=== PATIENT | female | born 1950 | race Caucasian/White ===

== ENCOUNTER 2023-12-14 20:41 | Inpatient (IN) | payer OTHER, SELFPAY ==
[2023-12-14 18:16] VITALS: BP 166/104
[2023-12-14 18:39] VITALS: BMI 36.4
[2023-12-14 18:43] VITALS: BP 153/108
--- NOTE | 2023-12-14 18:51 | ED.GENMED ---
History of Present Illness
General
Chief Complaint: Heart Rate Problem
Source: patient
Exam Limitations: none
Time Seen by Provider: 12/14/23 18:24
Travel History
Have you had any contact with someone who has COVID-19?: No
Do you have any symptoms of coronavirus? Fever > 100 degrees, chills, cough, shortness of breath, sore throat, loss of taste or smell, muscle aches, or headache?: No
History of Present Illness
History of Present Illness:
This is a 73 year old female that comes in with c/o SOB. States that she went to [facility] on Wednesday and she was told that she had Pneumonia. Patient was given Prednisone, Doxycycline, Tessalon pearls and albuterol inhaler. States that she went
to the PCP today and her Pulse ox at home was only 94% and it went down to 93% in the PCP office. States that they gave her a neb treatment and told her to come to the ER. States that she is SOB with walking and her chest is sore due to the
coughing. States that she had diarrhea 2 days ago and has a headache. Denies any fever, chills, abd pain, nausea, vomiting, diarrhea, dizziness, urinary burning.
Past History
Past History
ED Past Medical History: Arrthythmia (afib on Xarelto), Hypercholesterolemia and Other (Sleep apnea, )
ED Past Surgical History: None
Social History
Tobacco: Former smoker
Alcohol: Occasional
Drug: None
Personal:
Living: alone
Review of Systems
Review of Systems
All Other Systems: ROS reviewed and negative except as documented in HPI and ROS
Constitutional: Reports no symptoms; Denies fever or chills
EENT: Reports no symptoms
Respiratory: Reports cough and trouble breathing
Cardiac: Reports no symptoms; Denies chest pain
ABD/GI: Reports no symptoms; Denies abdominal pain, nausea, vomiting or diarrhea
: Reports no symptoms; Denies dysuria, frequency or urgency
Musculoskeletal: Reports no symptoms
Skin: Reports no symptoms
Neurological: Reports headache; Denies dizzy
Psychiatric: Reports no symptoms
Phy Exam
General Physical Exam
General Presentation: mild distress
General age: appears stated age
General Skin: warm and dry
General Habitus: elderly
General Mental: alert
General Hydration: dry mucous membranes
ENT Exam
ENT Exam: TM's normal, pharynx normal and neck supple
Eye Exam
Eye Exam: EOMI
Cardiovascular Exam
Cardiovascular Exam: no edema, no murmur, normal peripheral pulses and irregularly irregular
Pulmonary Exam
Pulmonary Exam: no rales, chest non tender, no crackles, no rhonchi, decreased breath sounds and other (Anterior exp wheezing noted, Dry cough, SOB with ambulation)
Gastrointestinal Exam
Gastrointestinal Exam: normal bowel sounds, non tender, soft, no organomegaly, no pulsatile mass and non distended
Musculoskeletal Exam
Musculoskeletal Exam: full ROM and no edema
Skin Exam
Skin Exam: normal color, warm/dry, no rash and no petechia
Psychiatric Exam
Psychiatric Exam: normal mood/affect
Course
Orders/Labs/Results
Orders:
Orders
12/14/23 18:21
Electrocardiogram (*1) Urgent
Reason for Study: Chest Pain
EKG- Treatment ONCE
12/14/23 18:43
CR Chest - 2 Views Urgent
Comment:
Reason For Exam: sob, WHEEZING
12/14/23 18:46
Complete Blood Count/With Diff Urgent
Comprehensive Metabolic Panel Urgent
Lactic Acid Urgent
Blood Culture Q30M
TIN Source: Blood/Venous
Specimen Description:
Blood Culture Q30M
TIN Source: Blood/Venous
Specimen Description:
12/14/23 19:13
Diltiazem HCl [Cardizem] 10 mg IV NOW STA
Ipratropium/Albuterol Sulfate [Duoneb] 3 ml INH R NOW ONE
Abnormal Lab Results
12/14/23
18:46
Absolute Neuts (auto) 8.1 H 10^3/uL
(1.4-6.5)
Absolute Monos (auto) 0.9 H 10^3/uL
(0.1-0.6)
Neutrophils % 76.5 H %
(42.2-75.2)
Lymphocytes % 14.0 L %
(20.5-51.1)
BUN 30 H mg/dl
(7-17)
Glucose 115 H mg/dl
(70-99)
12/14/23 18:46
12/14/23 18:46
Dehydration. glucose nonfasting. Lactic acid normal at 1.5
Vital Signs
Initial and Last Documented VS:
Initial Vital Signs
Temp Pulse Resp BP Pulse Ox
98.3 F 114 22 166/104 94
12/14/23 18:16 12/14/23 18:16 12/14/23 18:16 12/14/23 18:16 12/14/23 18:16
Last Documented Vital Signs
Temp Pulse Resp BP Pulse Ox
98.3 F 121 24 123/72 93
12/14/23 18:16 12/14/23 19:15 12/14/23 19:15 12/14/23 19:13 12/14/23 19:15
MDM/Problems Addressed
Differential Diagnosis Includes:
Pneumonia, Wheezing
MDM/Problems Addressed:
This is a 73 year old female that comes in with c/o SOB and low oxygen level. Patient was seen on Wednesday at [facility] and was diagnosed with Pneumonia. Patient was given Doxycycline, Albuterol, Prednisone and Tessalon pearls. States that she is
not getting any better.
Will get labs, Chest x-ray
Back into see patient. Explained that her Chest x-ray was negative for Pneumonia. Patient blood work shows Dehydration. However, patient remains in uncontrolled atrial fib with her rate between 120-131. Will give IV cardizem and place on a Cardizem
drip and admit. Hospitalist notified.
Chronic conditions affecting care:
NA
Acute Exacerbation and/or Progression of Chronic Illness:
Chronic bronchitis,
*Radiology
Radiology exam reviewed: radiology read reviewed (Chest-NO acute cardiopulmonary process)
*Pulse Oximetry
Patient hypoxic: no
*EKG
Interpreted by ED Provider?: Yes
Heart Rate: 115
Rate: tachycardiac
Rhythm: a-fib
[place]: normal axis
QRS Pattern: normal QRS
Ischemia: no ischemia
*[place] Interpretation
Rate: tachycardiac
Interpretation: abnormal
Heart Rate: 122
Rhythm: a-fib
*Critical Care Note
Total Time (30-74mins, 75-104mins- exclusive of procedures): Not Applicable
ED Attending Note
-
Portions of this chart may have been created with voice recognition software.� Occasional wrong word or��sound alike� substitutions may have occurred due to the inherent limitations of voice recognition software.
Discharge Plan
Departure
Patient Disposition: Admit
Date of Disposition: 12/14/23
Time of Disposition: 19:52
Admit to: Telemetry
Presentation/result/management discussed w/ accepting MD/DO: Hospitalist
Patient with high blood pressure during this ER visit?: Yes
Condition: Good
Covid-19: Not Applicable
Discharge Problem:
Bilateral wheezing, SOB (shortness of breath), Atrial fibrillation
Prescriptions:
No Action
atorvastatin 40 mg Tablet
40 mg PO HS
doxycycline hyclate 100 mg capsule
100 mg PO BID
Patient Comments:
12/14/2023, filled on 12/12/2023 and instructed to take one capsule BID for 10 days.
albuterol sulfate 2.5 mg /3 mL (0.083 %) Solution For Nebulization
2.5 mg INHALATION R Q6HPRN PRN (Reason: sob)
Theragen Tablet
1 tab PO DAILY
sotalol 120 mg Tablet
120 mg PO BID
prednisone 10 mg Tablets,Dose Pack
10 mg PO DIRECTED
Rx Instructions:
12/14/2023, 60 mg x 4 days; 40 mg x 4 days; 20 mg x 4 days.
nadolol 20 mg Tablet
20 mg PO DAILY
albuterol sulfate 90 mcg/actuation Hfa Aerosol Inhaler
2 puff INHALATION R Q4HPRN PRN (Reason: sob)
acetaminophen [Tylenol Extra Strength] 500 mg Capsule
1,000 mg PO DAILYPRN PRN (Reason: mild pain)
cholecalciferol (vitamin D3) 125 mcg (5,000 unit) Tablet
125 mcg PO DAILY
Xarelto 20 mg Tablet
20 mg PO QPM
benzonatate [Tessalon Perles] 100 mg Capsule
100 mg PO TID PRN (Reason: cough)
Referrals:
Zita Petersen MD [Family Provider] -
Interventions
Interventions:
*Risk Screen - Suicide Last Done: 12/14/23 18:16
*General Assessment Last Done: 12/14/23 18:16
*Neglect/Abuse Screening Last Done: 12/14/23 18:16
ED- Fall Risk Assessment Last Done: 12/14/23 18:39
*ED COVID-19 Vaccine History Last Done: 12/14/23 18:34
ED- Cardiac Assessment Last Done: 12/14/23 18:39
ED- Pulmonary Assessment Last Done: 12/14/23 18:39
Discharge Date and Time
Print Language: LITHUANIAN
[2023-12-14 19:04] LABS: % Basophils 0.3 % (0-2); % Immature Granulocytes 0.4 % (0-0.5); % Monocytes 8.8 % (1.7-9.3); % Neutrophils 76.5 % (42.2-75.2); Absolute Lymphocytes 1.5 10^3/uL (1.2-3.4); Absolute Monocytes 0.9 10^3/uL (0.1-0.6); Absolute Neutrophils 8.1 10^3/uL (1.4-6.5); Hematocrit 42.5 % (37.0-47.0); Hemoglobin 14.9 g/dL (12.0-16.0); Mean Corp Hgb Conc. 35.1 g/dL (33.0-37.0); Mean Corpuscular Hgb 30.4 pg (27.0-31.0); Mean Corpuscular Volume 86.7 fL (81.0-99.0); Mean Platelet Volume 9.7 fL (7.4-10.4); Nucleated Red Blood Cells % 0 %; Platelet Count 261 10^3/uL (130-400); Red Cell Dist. Width 13.2 % (11.5-14.5); White Blood Cell Count 10.6 10^3/uL (4.8-10.8)
[2023-12-14 19:13] VITALS: BP 123/72
[2023-12-14 19:14] LABS: Lactic Acid 1.5 mmol/L (0.7-2.0)
[2023-12-14 19:24] LABS: ALT (SGPT) 30 U/L (0-35); AST (SGOT) 32 U/L (14-36); Albumin 4.5 g/dl (3.5-5.0); Alkaline Phosphatase 84 U/L (38-126); Blood Urea Nitrogen 30 mg/dl (7-17); Calcium 9.9 mg/dl (8.4-10.2); Carbon Dioxide 23 mmol/L (22-30); Chloride 103 mmol/L (98-107); Estimated Creatinine Clearance 82 ml/min; Glucose 115 mg/dl (70-99); Potassium 4.4 mmol/L (3.5-5.1); Sodium 137 mmol/L (135-145); Total Bilirubin 0.6 mg/dl (0.2-1.3); Total Protein 7.5 g/dl (6.3-8.2); eGFR > 60.00
[2023-12-14] MEDS: DUONEB 3 ML INH (19:46)
[2023-12-14] MEDS: CARDIZEM 10 MG IV (19:46)
--- NOTE | 2023-12-14 20:15 | HPS.HSE ---
Addendum entered and electronically signed by Surjit Lezama MD 12/14/23 21:35:
Laboratory Tests
12/14/23
20:12
Zog-F-Vignklmtxha Pept 1200
- await ECHO in AM
Original Note:
Family Physician
-
Family Physician: Zita Petersen
Chief Complaint
-
sent in by PCP for hypoxia
History of Present Illness
73F Former smoker HX chr xarelto for A fib , Class I obesity, JUDY
Sent in by PCP for POx 94% for evaluation:
- Exertional SoB with bothersome cough with light yellow sputum since Wed12/11/23
- NEG Covid at home on Wednesday12/12/23
- eval at [facility] and told she has Bronchitis/ PNA treated with PO Prednisone + PO Doxycycline plus Alb INH.
- f/u at PCP today : noted Pox 93% on RA : Neb Tx and sent to ER
- Denied contact exposure
- No recent travelling
No PNA per CXR upon admission
ROS
Denies any fever, chills, abd pain, nausea, vomiting, diarrhea, dizziness, urinary burning.
Medical History
Past Medical History
Past Medical History: Reports Arrhythmia (A fib on xarelto and Sotalol ), Hypercholesterolemia and Other (Class I Obesity / JUDY )
Past Surgical History: Reports None
Social History
Tobacco: Former Smoker
Alcohol: Occasional
Drug: None
Personal:
Living: Alone
Family History
Family History: Not pertinent
Allergies / Home Medications
Allergies reflects when Allergies were last updated in [facility].
Home Medications with original date entered in [facility]
Allergy/Medication List:
Allergies
Allergy/AdvReac Type Severity Reaction Status Date / Time
No Known Allergies Allergy Verified 12/14/23 18:20
Home Medications
acetaminophen 500 mg capsule 1,000 mg PO DAILYPRN PRN mild pain 12/14/23
albuterol sulfate 2.5 mg/3 mL (0.083 %) solution for nebulization 2.5 mg inhalation R Q6HPRN PRN sob 12/14/23
albuterol sulfate 90 mcg/actuation aerosol inhaler 2 puff inhalation R Q4HPRN PRN sob 12/14/23
atorvastatin 40 mg tablet 40 mg PO HS 12/14/23
benzonatate 100 mg capsule 100 mg PO TID PRN cough 12/14/23
cholecalciferol (vitamin D3) 125 mcg (5,000 unit) tablet 125 mcg PO DAILY 12/14/23
doxycycline hyclate 100 mg capsule 100 mg PO BID 12/14/23
nadolol 20 mg tablet 20 mg PO DAILY 12/14/23
prednisone 10 mg tablets in a dose pack 10 mg PO DIRECTED 12/14/23
rivaroxaban 20 mg tablet (Xarelto) 20 mg PO QPM 12/14/23
sotalol 120 mg tablet 120 mg PO BID 12/14/23
therapeutic multivitamin 1 tab PO DAILY 12/14/23
Review of Systems
-
Constitutional: Reports No Symptoms
EENT: Reports No Symptoms
Respiratory: Reports Cough and Trouble Breathing
Cardiac: Reports No Symptoms
Abdomen/GI: Reports No Symptoms
: Reports No Symptoms
Musculoskeletal: Reports No Symptoms
Skin: Reports No Symptoms
Neurological: Reports No Symptoms
Endocrine: Reports No Symptoms
Hematologic/Lymphatic: Reports No Symptoms
Psych: Reports No Symptoms
Physical Exam
Vital Signs
Vital Signs
Temp Pulse Resp BP Pulse Ox
98.3 F 97 27 123/72 93
12/14/23 18:16 12/14/23 20:00 12/14/23 20:00 12/14/23 19:13 12/14/23 20:00
Physical Exam
General: Respiratory Distress (mild )
HEENT: NormoCephalic, Anicteric, Moist mucous membranes and Atraumatic
Respiratory: Wheezes (exp short squaky wheeze at both chest )
Cardiac: S1/S2, Irregular Rhythm and Tachycardia
Breast: Deferred by me
GI: Soft, Non Tender, Non Distended and Normal Bowel Sounds
Rectal: Deferred by Provider
Genito-urinary: Deferred by me
Musculoskeletal: No Edema
Skin: Warm and Dry
Neuro: AO x 3
Psych: Calm
Laboratory Results
-
12/14/23 18:46
12/14/23 18:46
Laboratory Results
Lactic Acid 1.5 mmol/L (0.7-2.0) 12/14/23 18:46
Total Bilirubin 0.6 mg/dl (0.2-1.3) 12/14/23 18:46
AST 32 U/L (14-36) 12/14/23 18:46
ALT 30 U/L (0-35) 12/14/23 18:46
Alkaline Phosphatase 84 U/L (38-126) 12/14/23 18:46
Data Reviewed
-
Diagnostic Radiology: Report Reviewed by me
Medical Tests (Nuc Med, Echo, EKG etc): Report Reviewed by me
Lab Data: Labs Reviewed by me
Old Records: Reviewed
Impression/Plan
-
Reviewed VS: Afebrile HR: 120s BP 165/105 --> 125/70 RR mid 20s POx low 90s on RA
BMI 34 Class I obesity
Data
Unremarkable CBC
Unremarkable BMP
unremarkable LFts
BG 115
BCx sent
12/03/22 CXR: No acute cardiopulmonary process.
EKG: report
ATRIAL FLUTTER WITH VARIABLE A-V BLOCK
NONSPECIFIC ST AND T WAVE ABNORMALITY
ABNORMAL ECG
WHEN COMPARED WITH ECG OF 10-JUL-2023 09:21,
ATRIAL FLUTTER HAS REPLACED ATRIAL FIBRILLATION
NONSPECIFIC T WAVE ABNORMALITY NOW EVIDENT IN LATERAL LEADS
Last hospitalist admission:
ASSESSMENT & PLAN
Suspect acute asthmatic bronchitis: mild. No evidence of PNA. No feevr and chills
Associated acute hypoxic RI: mild
Bothersome cough with light yellow sputum
Remote HX former smoker for 40 yrs
- IV Decadron 4mg q12h
- Xopenex Nebs qid and PRN
- O2 supplement to keep POx > 93
- No indication for ABx
- Pul consult
Fast AF suspect due to acute asthmatic bronchitis and Albuterol
HX Prx AF on xarelto and sotalol
P card at [place]: Dr Ashley
- cont Diltiazem gtt
- cont. sotalol but held nadolol fo now
- cont. Xarelto
- ECHO in AM ( No prior Echo in [facility])
- CBC card consult
HX JUDY on CPAP HS : reports compliance
BMI 34 Class I obesity
- CPAP HS
DVT Px: xarelto
Code: Ful
IMU
[2023-12-14] MEDS: NSS 1000 IV (20:18)
[2023-12-14] MEDS: CARDIZEM 125 IV (20:18)
[2023-12-14 20:42] LABS: COVID-19 Antigen Negative (Negative)
[2023-12-14 20:50] LABS: NT-proBNP 1200 pg/ml
[2023-12-14 21:13] VITALS: BP 126/83
[2023-12-14 21:17] VITALS: BMI 36.6
[2023-12-14 21:30] VITALS: BMI 36.6
[2023-12-14 22:00] VITALS: BP 115/99
[2023-12-14] MEDS: LIPITOR 40 MG PO (22:40)
[2023-12-14] MEDS: DECADRON 4 MG IV (22:40)
[2023-12-14] MEDS: XARELTO 20 MG PO (22:40)
[2023-12-14 23:53] VITALS: PULSE 103
[2023-12-15] VITALS (11 sets, daily range): BP systolic 112–143; BP diastolic 75–94; PULSE 100; BMI 36.3; BMI 35.8
[2023-12-15] MEDS: XOPENEX 1.25 MG INHALANT SOLUTION INH ×2 (00:06→11:21)
--- NOTE | 2023-12-15 03:26 | PTCARENOTE ---
Rec'd pt from ED RN, AAOx3. Cardizem gtt in place at 5 through L AC IV. VSS, HR 90s. Assessment as documented, harsh occasional non-productive cough. Pt able to ambulate OOBx1 to void. Pt does report some stress incontinence which she wears
disposable underwear for. CPAP HS. Call [facility] within reach.
[2023-12-15 04:48] LABS: Hemoglobin 14.4 g/dL (12.0-16.0); Mean Corp Hgb Conc. 33.5 g/dL (33.0-37.0); Mean Corpuscular Hgb 30.6 pg (27.0-31.0); Mean Corpuscular Volume 91.5 fL (81.0-99.0); Mean Platelet Volume 9.9 fL (7.4-10.4); Platelet Count 217 10^3/uL (130-400); Red Cell Dist. Width 13.2 % (11.5-14.5); White Blood Cell Count 7.7 10^3/uL (4.8-10.8)
[2023-12-15 05:17] LABS: Blood Urea Nitrogen 26 mg/dl (7-17); Calcium 9.1 mg/dl (8.4-10.2); Carbon Dioxide 28 mmol/L (22-30); Chloride 104 mmol/L (98-107); Estimated Creatinine Clearance 79 ml/min; Glucose 123 mg/dl (70-99); Potassium 4.3 mmol/L (3.5-5.1); Sodium 140 mmol/L (135-145); eGFR > 60.00
--- NOTE | 2023-12-15 07:51 | CON.PUL ---
Consultation
Consultation Request
Date/Time Consultation Requested: 12/15/2023-8 AM
Date/Time Consultation Performed: 12/15/2023-8:30 AM
Requesting Provider: Hospitalist
Performing Provider: Dr. Franco
Reason for Consultation: shortness of breath and wheezing
Medical History
-
Chief Complaint: Shortness of breath
History of Present Illness:
73-year-old female with probable underlying asthmatic bronchitis who quit smoking many years ago and has atrial fibrillation, obesity and obstructive sleep apnea presents with increasing shortness of breath, dyspnea exertion, wheezing, nonproductive
cough and pulmonary is consulted for shortness of breath/asthma exacerbation 12/15/2023. She feels improved since she came. She continues to have some wheezing, chest congestion and nonproductive cough. She does not complain of any reflux,
anorexia, leg swelling or weakness. She was recently diagnosed with obstructive sleep apnea and is on CPAP therapy.
Past Medical History
Past Medical History: None (Asthma-moderate persistent suspected. Atrial fibrillation/atrial flutter-chronic anticoagulation. Hyperlipidemia. Obstructive sleep apnea on CPAP. Obesity BMI 34.)
Social History
Tobacco: Former Smoker ([id number] quit 40 years ago)
Alcohol: Occasional
Drug: None
Personal:
Occupational Exposures: No known asbestos exposure
Environmental Exposures: No known tuberculosis exposure
Family History
Family History: Reviewed & Not Pertinent
Allergies / Home Medications
Allergies
Allergy/AdvReac Type Severity Reaction Status Date / Time
No Known Allergies Allergy Verified 12/14/23 18:20
Home Medications
�Medication �Instructions �Recorded �Confirmed �Last Taken �Type
acetaminophen 500 mg capsule 1,000 mg PO DAILYPRN PRN mild pain 12/14/23 12/14/23 2 Days Ago History
~12/12/23
albuterol sulfate 2.5 mg/3 mL 2.5 mg inhalation R Q6HPRN PRN sob 12/14/23 12/14/23 12/14/23 History
(0.083 %) solution for nebulization
albuterol sulfate 90 mcg/actuation 2 puff inhalation R Q4HPRN PRN sob 12/14/23 12/14/23 12/13/23 History
aerosol inhaler
atorvastatin 40 mg tablet 40 mg PO HS 12/14/23 12/14/23 12/13/23 History
benzonatate 100 mg capsule 100 mg PO TID PRN cough 12/14/23 12/14/23 12/14/23 History
cholecalciferol (vitamin D3) 125 125 mcg PO DAILY 12/14/23 12/14/23 12/14/23 History
mcg (5,000 unit) tablet
doxycycline hyclate 100 mg capsule 100 mg PO BID 12/14/23 12/14/23 12/14/23 History
nadolol 20 mg tablet 20 mg PO DAILY 12/14/23 12/14/23 12/14/23 History
prednisone 10 mg tablets in a dose 10 mg PO DIRECTED 12/14/23 12/14/23 12/14/23 History
pack
rivaroxaban 20 mg tablet (Xarelto) 20 mg PO QPM 12/14/23 12/14/23 12/13/23 History
sotalol 120 mg tablet 120 mg PO BID 12/14/23 12/14/23 12/14/23 History
therapeutic multivitamin 1 tab PO DAILY 12/14/23 12/14/23 12/14/23 History
Review of Systems
-
Unable to Obtain full review of systems at this time due to: Other (Per HPI)
Vitals / Labs / Diagnostic Testing
Vital Signs
Temp Pulse Resp BP Pulse Ox
99.1 F 93 18 115/89 91
12/15/23 03:38 12/15/23 04:00 12/15/23 04:00 12/15/23 04:00 12/15/23 04:00
Lab Data
12/15/23 04:40
12/15/23 04:40
Diagnostic Testing:
Physical Exam
-
Exam:
Well-nourished and well-developed in no apparent distress
HEENT-atraumatic, normocephalic, thick neck
Neck-supple, no JVD, no bruit
Heart-regular rate and rhythm-no murmurs, rubs or gallops
Chest with diminished breath sounds, prolonged expiratory time, expiratory wheezes and rhonchi, no crackles
Abdomen-soft, nontender, nondistended, no hepatosplenomegaly
Extremities-no cyanosis, clubbing, trace lower extremity edema
Integument-intact, no rashes, lesions or ecchymosis
Neurology-alert and oriented, nonfocal motor and sensory exam
Assessment
-
73-year-old female with probable underlying asthmatic bronchitis who quit smoking many years ago and has atrial fibrillation, obesity and obstructive sleep apnea presents with increasing shortness of breath, dyspnea exertion, wheezing, nonproductive
cough and pulmonary is consulted for shortness of breath/asthma exacerbation 12/15/2023.
Assessment
Asthma-moderate persistent suspected with acute exacerbation
Atrial fibrillation/atrial flutter on chronic anticoagulation-followed by Dr. Ashley
Mild hyperglycemia
Conditions present prior to admission:
Asthma-moderate persistent suspected.
Former [id number]-year-quit 30 years ago
Atrial fibrillation/atrial flutter-chronic anticoagulation.
Hyperlipidemia.
Obstructive sleep apnea on CPAP-recently diagnosed-followed by Dr. Fransisco Hampton
Obesity BMI 34.
Plan
History is consistent with recurrent asthmatic bronchitis-pathophysiology and inflammatory and reversible airway obstruction pathophysiology was reviewed with patient
Supplemental oxygen as needed
Nebulizers
Steroids-Decadron 4 mg IV every 12 hours initiated
Mucolytic's-on Mucinex 1200 mg twice daily
Aspiration precautions
Consider magnesium if does not improve
Consider heliox if does not improve
CPAP for her obstructive sleep apnea
Monitor for progression of severe exacerbation-
Respiratory rate >30
Tachycardia >120
accessary muscle use
Inability to speak full sentences
Inability be supine
Pulsus paradox, etc.
Monitor PEF if needed
Obtain ABG if necessary to assess for hypercapnia
Check cultures
Doxycycline initiated
Atrial fibrillation/flutter rate controlled
On chronic anticoagulation
Cardiology consultation pending
Eventually obtain allergy testing, IgE level, eosinophils, etc.
Consider Biologics such as Xolair -anti-IgE, Nucala-IL-5 inhibitor, Dbworwn-PP-9 inhibitor, or Dupixent-I L4/13 inhibitor or Tezspire
DVT prophylaxis-on Xarelto
Nutrition
Early mobilization
Follows with Dr. Fransisco Hampton for obstructive sleep apnea
Outpatient pulmonary hyleii-yx-RORx, allergy testing, etc.-we will provide our office information at the time of discharge
Reviewed with nursing
Diagnostic data:
Chest x-ray 07/20/2019-no evidence for pneumonia, 1.9 cm nodular opacification posterior heart and lateral view, CT chest recommended
Chest x-ray 10/02/1932-NAD
Chest x-ray 07/10/2023-NAD
Chest x-ray 12/14/2023-NAD
CT chest 08/19/2019-previously described a possible nodule retrocardiac region lateral view of the chest x-ray is felt to represent overlap of lung markings, no discrete nodules identified, borderline size lymph nodes in the mediastinum and right
hilum consistent with inflammation, scattered bilateral nodular densities are nonspecific
CT sinus 09/24/2009-extensive soft tissue and fluid densities in the paranasal sinuses with multiple air-fluid levels
Data Reviewed
-
EKG: Report reviewed by me
Radiology: Image personally visualized and interpreted and Report reviewed by me
CT Scan: Report reviewed by me
Medical Tests (Nuc Med, Echo etc): Report reviewed by me
Labs: Labs reviewed by me
Old Records: Reviewed
Total Time Spent with Patient (in minutes): 65
--- NOTE | 2023-12-15 08:28 | CON.CAR ---
Addendum entered and electronically signed by Jennifer Goodson MD 12/15/23 11:21:
I saw and examined the patient.
The FINANCIAL SERVICE REP's note was reviewed and I agree with the note.
Comment: She is feeling much better. She has a known h/o PAF, may be developing into a more persistent pattern. She is followed at [place] on sotalol and Xarelto. She is being treated acute asthma exacerbation. Her rates are improved on dilt gtt
and Sotalol continues. irreg irreg, no m/r/g. Lungs cta without wheezing. atrial flutter with rvr. She is now with a very mild elevation. Will resume home regimen and monitor. She has been on bb a long time without wheezing. Will consider
transition if any worsening. Consider changing albuterol to Xopenex given tachyarrhythmia. In the long tern she will follow with Dr Adrian regarding ongoing use of Sotalol given more frequent episodes vs PVI.
Original Note:
Consultation
Consultation Request
Date/Time Consultation Requested: 12/14/232219
Date/Time Consultation Performed: 12/15/23 0830
Requesting Provider: Dee Gonzalez NP
Performing Provider: Sara LEIGH for Dr. Goodson
Reason for Consultation: AFIB with RVR
Medical History
-
Chief Complaint: SOB
History of Present Illness:
73 y/o female (cardiology patient of Dr. Adrian) with history of AFIB on sotalol and Xarelto, JUDY, dyslipidemia, and obesity who is here for evaluation of SOB. Briefly, due to SOB and productive cough over the past few days; she went to urgent
care and was started on treatment for suspected PNA. She saw her PCP in follow-up and was recommended to come to the ER. Here, she is admitted with suspected acute asthmatic bronchitis and is being treated with steroids and breathing treatments,
with pulmonary consultation. We are consulted since she was seen to be in AFIB with RVR; rates currently in 90's on diltiazem drip.
Past Medical History
Past Medical History: Arrhythmias, Hypercholesterolemia and Other (JUDY, obesity)
Social History
Tobacco: Former Smoker
Family History
Family History: Other (brother with AFIB)
Allergies / Home Medications
Allergy/AdvReac Type Severity Reaction Status Date / Time
No Known Allergies Allergy Verified 12/14/23 18:20
�Medication �Instructions �Recorded �Confirmed �Type
acetaminophen 500 mg capsule 1,000 mg PO DAILYPRN PRN mild pain 12/14/23 12/14/23 History
albuterol sulfate 2.5 mg/3 mL 2.5 mg inhalation R Q6HPRN PRN sob 12/14/23 12/14/23 History
(0.083 %) solution for nebulization
albuterol sulfate 90 mcg/actuation 2 puff inhalation R Q4HPRN PRN sob 12/14/23 12/14/23 History
aerosol inhaler
atorvastatin 40 mg tablet 40 mg PO HS 12/14/23 12/14/23 History
benzonatate 100 mg capsule 100 mg PO TID PRN cough 12/14/23 12/14/23 History
cholecalciferol (vitamin D3) 125 125 mcg PO DAILY 12/14/23 12/14/23 History
mcg (5,000 unit) tablet
doxycycline hyclate 100 mg capsule 100 mg PO BID 12/14/23 12/14/23 History
nadolol 20 mg tablet 20 mg PO DAILY 12/14/23 12/14/23 History
prednisone 10 mg tablets in a dose 10 mg PO DIRECTED 12/14/23 12/14/23 History
pack
rivaroxaban 20 mg tablet (Xarelto) 20 mg PO QPM 12/14/23 12/14/23 History
sotalol 120 mg tablet 120 mg PO BID 12/14/23 12/14/23 History
therapeutic multivitamin 1 tab PO DAILY 12/14/23 12/14/23 History
Review of Systems
-
History Source: Patient
All other systems: Negative unless noted
Respiratory: Cough and Trouble Breathing
Cardiac: Other (denies orthopnea, PND, weight gain, or edema)
Physical Exam
Vital Signs
Temp Pulse Resp BP Pulse Ox
99.1 F 93 18 115/89 91
12/15/23 03:38 12/15/23 04:00 12/15/23 04:00 12/15/23 04:00 12/15/23 04:00
Lab Results
12/15/23 04:40
12/15/23 04:40
Ost-G-Zouzuqvubmy Pept 1200 pg/ml 12/14/23 20:12
Physical Exam
General: Well Developed, Well Nourished and No Apparent Distress
Respiratory: Other (coarse lung sounds t/o)
Cardiac: Irregular Rhythm
Neuro: AO x 3
Psych: Calm
Impression / Plan
-
Bronchitis, acute asthmatic:
-on steroids and breathing treatments
-pulmonary is consulted
AFIB: paroxysmal versus persistent
-was mildly elevated on arrival in setting of acute illness- rate well controlled on diltiazem drip, which requires intensive monitoring. Treat underlying illness as above.
-OP notes reviewed and her chicken picker wonders if she is in AFIB more than she thinks she is and has discussed ablation. Patient checks occasional Kardia monitor and appeared to be in SR in mid-November. Patient sometimes feels palpitations, but
otherwise doesn't seem symptomatic with it.
-continue sotalol and Xarelto (which she is compliant with)
-she is also on nadolol, but this is held while she is on diltiazem drip here
-OP notes reviewed- echo 03/31/23 EF 55-60%, mild MR and TR
-Long-term AFIB management per OP chicken picker
JUDY:
-recently started on CPAP
-continue CPAP
Data Reviewed
-
EKG: Tracing Personally Visualized and interpreted (AF 115 BPM)
Radiology: Report Reviewed by me (CXR 12/14/23)
Medical Tests (Nuc Med, Echo etc): Report Reviewed by me (echo 03/31/23 EF 55-60%, mild MR and TR)
Labs: Labs Reviewed by me
Old Records: Reviewed (Dr. Adrian OP note 10/04/23- discussed AFIB treatment options, decided to monitor as sleep apnea treated)
[2023-12-15] MEDS: BETAPACE 120 MG PO ×2 (08:57→20:11)
[2023-12-15] MEDS: MUCINEX 1200 MG PO ×2 (08:57→20:11)
[2023-12-15] MEDS: VIBRAMYCIN 100 MG PO ×2 (08:57→20:11)
--- NOTE | 2023-12-15 09:01 | W.PN.HOSP.TC ---
Today's Communication/Plan
-
see note
transfer to tele/IVU
Assessment / Plan
Assessment / Plan
1. Presumed COPD flareup
Former smoker
-Patient have history of on and off wheezing and has been using albuterol inhaler. Patient never followed up with [facility] in the past although have failed to follow-up for PFT to confirm diagnosis of asthma versus COPD versus any
overlap syndrome
-Patient had some URTI/bronchitis for which patient was provided prednisone and doxycycline at primary care physician, despite taking 3 days of medicine patient continued to have dyspnea/wheezing on exam and patient was sent in for further evaluation
-Chest x-ray relatively clear and no overt pneumonia
-Likely flareup of underlying pulmonary pathology, maintain on IV Decadron and nebulizer therapy
-Maintain patient on doxycycline for now for treatment of bronchitis
-Patient would benefit with follow-up with pulmonology in 4-6 weeks for a formal PFT, discussed this with patient.
2. Paroxysmal atrial fibrillation with rapid ventricular rate
History of supraventricular tachycardia
History of cardioversion
-Patient with known A-fib and follows up with [facility].
-On regimen of nadolol/sotalol/Xarelto
-QTC 464ms on EKG in ER
-Patient currently on Cardizem drip and heart rate in 100 110 range
-Cardiology consulted for further help with rate control.
Hyperlipidemia
History of COVID-19 viral infection
Obesity
DVT PPX - Xarelto
Full code
Anticipated Discharge: 24 - 48 hours
Subjective/Interval History
-
Date of Service: December 15, 2023
Having some cough
No significant dyspnea
Not hypoxic
Objective Data
-
Labs:
Laboratory Results
12/15/23
04:40
WBC 7.7
Hgb 14.4
Hct 43.0
Plt Count 217
Sodium 140
Potassium 4.3
Chloride 104
Carbon Dioxide 28
BUN 26 H
Creatinine 0.7
Glucose 123 H
Calcium 9.1
Vital Signs:
Vital Signs
Temp Pulse Resp BP Pulse Ox
98.6 F 93 18 115/89 91
12/15/23 07:20 12/15/23 04:00 12/15/23 04:00 12/15/23 04:00 12/15/23 04:00
Review of Systems
-
Respiratory: Reports Cough and Wheezing; Denies Trouble Breathing
Cardiac: Reports No Symptoms
Abdomen/GI: Reports No Symptoms
Physical Exam
-
General: Comfortable and Obese
HEENT: Negative Oxygen
Respiratory: Wheezes and Rhonchi
Cardiac: Regular Rhythm and S1/S2; Negative Murmur or Rub
GI: Soft, Nontender and Nondistended
Musculoskeletal: No Edema
Neuro: Awake, Alert, Oriented, No Motor Deficits and Nonfocal/Grossly Intact
Psych: Calm
[2023-12-15] MEDS: CORGARD 20 MG PO (11:18)
[2023-12-15] MEDS: DECADRON 4 MG IV ×2 (11:18→22:18)
--- NOTE | 2023-12-15 11:33 | PTCARENOTE ---
Order received to start PO Corgard and d/c Cardizem GTT. Corgard administered. Cardizem gtt stopped, see intervention.
--- NOTE | 2023-12-15 12:59 | PTCARENOTE ---
Pt for transfer to tele. Report to receiving RN. Belongings collected from room, transferred via wheelchair.
--- NOTE | 2023-12-15 14:00 | PTCARENOTE ---
Pt received from IMU. Offers no complaints. Patient care is ongoing.
[2023-12-15] MEDS: XARELTO 20 MG PO (17:40)
--- NOTE | 2023-12-15 17:54 | CM ---
Patient with Dx Presumed COPD flare, PAF. Room air. Receiving IV Decadron.
Met with patient who resides alone in a 2 story house with first floor bedroom/bath setup and no FOREST.
The patient has been independent in ADLs and ambulation.
She is active and works.
The patient has no DME, prior VN.
PCP - Zita Petersen
Pharmacy - [facility]
No CM d/c needs identified.
Plan home.
--- NOTE | 2023-12-15 18:11 | PTCARENOTE ---
Pt HR 110-120 at rest and 140 walking to bathroom .MD was made aware.
[2023-12-15] MEDS: LIPITOR 40 MG PO (22:17)
[2023-12-16 03:51] VITALS: BP 132/88
[2023-12-16 04:11] VITALS: BMI 35.8
[2023-12-16 04:19] VITALS: PULSE 100
[2023-12-16 05:14] LABS: Hematocrit 42.3 % (37.0-47.0); Hemoglobin 14.2 g/dL (12.0-16.0); Mean Corp Hgb Conc. 33.6 g/dL (33.0-37.0); Mean Corpuscular Hgb 30.3 pg (27.0-31.0); Mean Corpuscular Volume 90.4 fL (81.0-99.0); Mean Platelet Volume 9.9 fL (7.4-10.4); Platelet Count 203 10^3/uL (130-400); Red Blood Cell Count 4.68 10^6/uL (4.20-5.40); White Blood Cell Count 5.6 10^3/uL (4.8-10.8)
[2023-12-16 05:41] LABS: Blood Urea Nitrogen 23 mg/dl (7-17); Calcium 9.7 mg/dl (8.4-10.2); Carbon Dioxide 29 mmol/L (22-30); Chloride 101 mmol/L (98-107); Estimated Creatinine Clearance 80 ml/min; Glucose 132 mg/dl (70-99); Potassium 4.7 mmol/L (3.5-5.1); Sodium 137 mmol/L (135-145); eGFR > 60.00
[2023-12-16 07:55] VITALS: BP 121/89
[2023-12-16] MEDS: VIBRAMYCIN 100 MG PO (09:07)
[2023-12-16] MEDS: CORGARD 20 MG PO (09:07)
[2023-12-16] MEDS: BETAPACE 120 MG PO (09:07)
--- NOTE | 2023-12-16 09:27 | W.PN.HOSP.TC ---
Today's Communication/Plan
-
d/c home
Assessment / Plan
Assessment / Plan
1. Presumed COPD flareup
Former smoker
-Patient have history of on and off wheezing and has been using albuterol inhaler. Patient never followed up with [place] pulmonology in the past although have failed to follow-up for PFT to confirm diagnosis of asthma versus COPD versus any
overlap syndrome
-Patient had some URTI/bronchitis for which patient was provided prednisone and doxycycline at primary care physician, despite taking 3 days of medicine patient continued to have dyspnea/wheezing on exam and patient was sent in for further evaluation
-Chest x-ray relatively clear and no overt pneumonia
-Likely flareup of underlying pulmonary pathology, maintain on IV Decadron and nebulizer therapy
-Maintain patient on doxycycline for now for treatment of bronchitis
-Patient would benefit with follow-up with pulmonology in 4-6 weeks for a formal PFT, discussed this with patient.
2. Paroxysmal atrial fibrillation with rapid ventricular rate
History of supraventricular tachycardia
History of cardioversion
-Patient with known A-fib and follows up with [place] cardiology.
-On regimen of nadolol/sotalol/Xarelto
-QTC 464ms on EKG in ER
-Patient is off Cardizem drip. Currently on home regimen of medication
-HR in 100-120 range with activity, denies of having any symptoms
Hyperlipidemia
History of COVID-19 viral infection
Obesity
DVT PPX - Xarelto
Full code
More than 30 minutes spent in discharge including
Final examination of the patient
Summarizing hospital stay
Instructions for continuing care to all relevant caregivers
Preparation of discharge records, prescriptions, and referral forms
Total time spent (in minutes): 38 mins
Anticipated Discharge: Today
Subjective/Interval History
-
Date of Service: December 16, 2023
Patient walking around in the room without any problem not on oxygen
Denies having any nighttime palpitations/chest discomfort
Objective Data
-
Labs:
Laboratory Results
12/16/23
05:05
WBC 5.6
Hgb 14.2
Hct 42.3
Plt Count 203
Sodium 137
Potassium 4.7
Chloride 101
Carbon Dioxide 29
BUN 23 H
Creatinine 0.7
Glucose 132 H
Calcium 9.7
Vital Signs:
Vital Signs
Temp Pulse Resp BP Pulse Ox
97.7 F 105 20 121/89 95
12/16/23 07:55 12/16/23 09:07 12/16/23 07:55 12/16/23 09:07 12/16/23 07:55
I&O
12/15/23 12/16/23 12/17/23
06:59 06:59 06:59
Intake Total 1560 / 1560
Balance 1560 / 1560
Review of Systems
-
Respiratory: Reports No Symptoms
Cardiac: Reports No Symptoms
Abdomen/GI: Reports No Symptoms
Physical Exam
-
General: Comfortable and Obese
HEENT: Negative Oxygen
Respiratory: Clear to Auscultation
Cardiac: S1/S2, Irregular Rhythm and Tachycardic; Negative Murmur or Rub
GI: Soft, Nontender and Nondistended
Musculoskeletal: No Edema
Neuro: Awake, Alert, Oriented, No Motor Deficits and Nonfocal/Grossly Intact
Psych: Calm
--- NOTE | 2023-12-16 10:10 | W.PN.PUL.V3 ---
Today's Communication / Plan
-
Increase activity
Change steroids to prednisone with slow taper
Outpatient pulmonary and sleep disorders follow-up
Assessment
-
73-year-old female with probable underlying asthmatic bronchitis who quit smoking many years ago and has atrial fibrillation, obesity and obstructive sleep apnea presents with increasing shortness of breath, dyspnea exertion, wheezing, nonproductive
cough and pulmonary is consulted for shortness of breath/asthma exacerbation 12/15/2023.
Assessment
Asthma-moderate persistent suspected with acute exacerbation
Atrial fibrillation/atrial flutter on chronic anticoagulation-followed by Dr. Ashley
Mild hyperglycemia
Conditions present prior to admission:
Asthma-moderate persistent suspected.
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
Atrial fibrillation/atrial flutter-chronic anticoagulation.
Hyperlipidemia.
Obstructive sleep apnea on CPAP-recently diagnosed-followed by Dr. Fransisco Hampton
Obesity BMI 34.
Plan
History is consistent with recurrent asthmatic bronchitis-pathophysiology and inflammatory and reversible airway obstruction pathophysiology was reviewed with patient
Respiratory status
Improved with much less wheezing
Supplemental oxygen as needed-currently weaned to room air-suspect will not require outpatient supplemental oxygen
Nebulizers continues
Change Decadron to prednisone with slow taper
Mucolytic's-on Mucinex 1200 mg twice daily
Cultures reviewed-unrevealing
Unable to produce sputum
Doxycycline initiated-finish a finite course
Atrial fibrillation/flutter rate controlled
On chronic anticoagulation
Cardiology consultation-correspondence reviewed
Eventually obtain allergy testing, IgE level, eosinophils, etc.
Consider Biologics such as Xolair -anti-IgE, Nucala-IL-5 inhibitor, Jfewvmw-DU-8 inhibitor, or Dupixent-I L4/13 inhibitor or Tezspire
DVT prophylaxis-on Xarelto
Nutrition
Early mobilization
Respiratory status improved and could be discharged on prednisone taper and inhalers
Follows with Dr. Fransisco Mushlin for obstructive sleep apnea
Outpatient pulmonary [id number], allergy testing, etc.-we will provide our office information at the time of discharge
Reviewed with nursing
Diagnostic data:
Chest x-ray 07/20/2019-no evidence for pneumonia, 1.9 cm nodular opacification posterior heart and lateral view, CT chest recommended
Chest x-ray 10/02/1932-NAD
Chest x-ray 07/10/2023-NAD
Chest x-ray 12/14/2023-NAD
CT chest 08/19/2019-previously described a possible nodule retrocardiac region lateral view of the chest x-ray is felt to represent overlap of lung markings, no discrete nodules identified, borderline size lymph nodes in the mediastinum and right
hilum consistent with inflammation, scattered bilateral nodular densities are nonspecific
CT sinus 09/24/2009-extensive soft tissue and fluid densities in the paranasal sinuses with multiple air-fluid levels
Subjective Data
-
Date of Service:
Date of Service: December 16, 2023
Chief Complaint: Pulmonary Follow Up and Dyspnea Follow Up
Subjective:
Feels improved, no complaints of shortness of breath at rest, wheezing improved, no productive cough, no abdominal pain
Review of Systems
General: Other (per HPI)
Objective Data
Data Reviewed
Vital Signs / I&O:
Vital Signs
Temp Pulse Resp BP Pulse Ox
97.7 F 105 20 121/89 95
12/16/23 07:55 12/16/23 09:07 12/16/23 07:55 12/16/23 09:07 12/16/23 07:55
Intake and Output
12/15/23 12/16/23 12/17/23
06:59 06:59 06:59
Intake Total 1560 / 1560
Balance 1560 / 1560
SaO2: 95
Physical Exam
General: Respiratory Distress (n) and Comfortable
HEENT: Normocephalic, Anicteric and Moist Mucous Membranes
Cardiovascular: Regular Rhythm
Respiratory: Wheeze (n), Crackles (n), Rhonchi, Non-Labored Respirations, Accessory Resp Muscle Use (n) and Stridor
GI: Soft, Non Distended and Non Tender
Neurology: Awake, Alert and No Motor Deficits
Skin: Warm, Good Color, Cyanosis (n), Jaundice (n) and Rash (n)
Labs/Micro/Reports
Lab Data
12/16/23 05:05
12/16/23 05:05
Microbiology
12/14/23 18:46 Blood/Venous Blood Culture - Preliminary
No Growth in 24 hours- Final report to follow
12/14/23 18:46 Blood/Venous Blood Culture - Preliminary
No Growth in 24 hours- Final report to follow
[2023-12-16] MEDS: MUCINEX PO (10:21)
--- NOTE | 2023-12-16 11:33 | W.PN.CD ---
Today's Communication / Plan
-
No objection to discharge
She will monitor her rate and rhythm daily for now (Enzo at home). May need more rate control is stays in AFIb => pt aware
AFib risk factors reviewed with pt
If more wheezing then a move to Tikosyn/dilt could be considered. PVI also option. But with NO symptoms it is still OK to consider just rate control
Impression / Plan
-
Bronchitis, acute asthmatic
AFIB: paroxysmal versus persistent => she monitors home ekg and says that she is mostly in Sinus, persisting her
- chronic BB/sotaolol and nadolol
- She will f/u with her [facility] dental receptionist
JUDY, cpap
Feels well
Physical Exam
Vital Signs/Labs
Vital Signs
Temp Pulse Resp BP Pulse Ox
97.7 F 105 20 121/89 95
12/16/23 07:55 12/16/23 09:07 12/16/23 07:55 12/16/23 09:07 12/16/23 10:10
12/15/23 12/16/23 12/17/23
06:59 06:59 06:59
Actual Weight 93 kg 92.986 kg
12/16/23 05:05
12/16/23 05:05
12/14/23
20:12
Fms-K-Snpnpbaillb Pept 1200
Physical Exam
Constitutional: No acute distress
Cardiovascular: Rhythm/rate is irregular and S1S2 is normal
Respiratory: Respiratory effort normal and Lungs clear to auscul.
GI: Soft and Distention absent
Neuro/Psych: AO x 3
Data Reviewed
-
Date of Service: December 16, 2023
--- NOTE | 2023-12-16 12:48 | CM ---
I met with Zhanna who resides alone in a 2 story house with first floor bedroom/bath setup and no entry steps.
She has been independent in ADLs and ambulation, active and working.
PCP - Zita Petersen
Pharmacy - [facility]
Plan: Discharge to home with no identified needs.
.
--- NOTE | 2023-12-17 17:42 | W.DCSUMMARY ---
Discharge Summary
Discharge Data
Date of Admission: 12/14/23
Date of Discharge: 12/16/23
-
Pending Results: No
Hospital Course
Discharging Physician : Dr Ulisses Ayala
Disposition : Home
Primary care physician : Dr Zita Petersen
Principal Discharge diagnosis :
Presumed chronic obstructive pulmonary disease flareup
Paroxysmal atrial fibrillation with rapid ventricular rate
Chronic Discharge diagnosis :
History of ventricular tachycardia
History of cardioversion
Hyperlipidemia
History of COVID-19 viral infection
Obesity
Hospital Course :
Patient is a 73-year-old female with above-mentioned past medical history came to ER with persistent shortness of breath. Patient had some upper respiratory tract infection/bronchitis-like symptoms for which patient was provided prescription for
prednisone and doxycycline and patient took 3 days of doses. Patient symptoms persisted and came to ER for further evaluation. Chest x-ray was clear for any pneumonia. Patient was wheezing on exam and was felt to be still going through
asthma/COPD flareup. Patient was started on IV steroids and doxycycline as part of flareup treatment. Pulmonology was involved in care. After improvement in symptoms patient was provided repeat tapering course of steroids.
Patient have associated paroxysmal atrial fibrillation with rapid ventricular rate. Cardiology involved in care and patient was initially maintained on Cardizem drip. After improvement of pulmonary symptoms patient was able to be transition back
to home dose of rate control medication. Patient to continue follow-up with [facility].
Important imaging findings :
None
Procedure findings :
None
Discharge Plan
-
Patient Disposition: Home (Routine Discharge)
Discharge Diagnosis/Procedures: COPD flare up, Afib with RVR
Condition: Fair
Diet: Low Cholesterol
Activity: As tolerated
Driving Restrictions: As prior to admission
Bathing Restrictions: OK to Shower
Referrals:
Zita Petersen MD [Family Provider] - in one week
Ralph Franco MD [Active] - in two to three weeks
(Dr. Franco or [employer]
Eventual full PFTs)
Prescriptions:
New
doxycycline hyclate 100 mg Capsule
100 mg PO Q12 Qty: 8 0RF
levalbuterol HCl 1.25 mg/3 mL Solution For Nebulization
1.25 mg inhalation R Q6HPRN PRN (Reason: sob and wheeze) Qty: 75 1RF
prednisone 10 mg Tablet
See Rx Instructions .ROUTE .COMPLEX Qty: 30 0RF
Rx Instructions:
Take By Mouth:
40 mg daily x3 days, 30 mg daily x3 days,
20 mg daily x3 days, 10 mg daily x3 days.
Continued
atorvastatin 40 mg Tablet
40 mg PO HS
therapeutic multivitamin Tablet
1 tab PO DAILY
sotalol 120 mg Tablet
120 mg PO BID
nadolol 20 mg Tablet
20 mg PO DAILY
acetaminophen 500 mg Capsule
1,000 mg PO DAILYPRN PRN (Reason: mild pain)
cholecalciferol (vitamin D3) 125 mcg (5,000 unit) Tablet
125 mcg PO DAILY
Xarelto 20 mg Tablet
20 mg PO QPM
benzonatate 100 mg Capsule
100 mg PO TID PRN (Reason: cough)
Discontinued
doxycycline hyclate 100 mg capsule
100 mg PO BID
Patient Comments:
12/14/2023, filled on 12/12/2023 and instructed to take one capsule BID for 10 days.
albuterol sulfate 2.5 mg /3 mL (0.083 %) Solution For Nebulization
2.5 mg INHALATION R Q6HPRN PRN (Reason: sob)
prednisone 10 mg Tablets,Dose Pack
10 mg PO DIRECTED
Rx Instructions:
12/14/2023, 60 mg x 4 days; 40 mg x 4 days; 20 mg x 4 days.
albuterol sulfate 90 mcg/actuation Hfa Aerosol Inhaler
2 puff INHALATION R Q4HPRN PRN (Reason: sob)
Discharge Orders:
Discharge Patient (As Directed); Ordered 12/16/23
Ordered By: Ulisses Ayala
Discharge Date and Time
Discharge Date/Time: 12/16/23 12:08
Print Language: URDU
== END 2023-12-16 12:08 | disposition home or self-care (01) | DRG 203 ==
LOC: 4 EAST ACU 20:41
PROVIDERS: Clinical Nurse Specialist Family Health; ADMITTING PHYSICIAN Internal Medicine; ATTENDING PHYSICIAN Hospitalist; CONSULT PHYSICIAN Internal Medicine; CONSULT PHYSICIAN Internal Medicine Critical Care Medicine; EMERGENCY PHYSICIAN Emergency Medicine; FAMILY PHYSICIAN Family Medicine
DX: J45.41 Moderate persistent asthma with (acute) exacerbation (principal); I48.0 Paroxysmal atrial fibrillation; E78.00 Pure hypercholesterolemia, unspecified; G47.33 Obstructive sleep apnea (adult) (pediatric); E66.9 Obesity, unspecified; Z68.35 Body mass index [BMI] 35.0-35.9, adult; Z79.01 Long term (current) use of anticoagulants; Z87.891 Personal history of nicotine dependence
CPT/HCPCS: 71046; 80048; 80053; 83605; 83880; 85025; 85027; 87040; 87811; 93005; 94640; 94660; 96361; 96374; 96376; 99285

== ENCOUNTER → 2024-01-05 14:10 | Outpatient (REF) | payer OTHER, SELFPAY | LOC: RAD 14:10 | PROVIDERS: ATTENDING PHYSICIAN Internal Medicine Critical Care Medicine | DX: R91.8 Other nonspecific abnormal finding of lung field (principal) | CPT/HCPCS: 71250 ==

== ENCOUNTER → 2025-02-21 14:10 | Outpatient (REF) | payer OTHER, SELFPAY | LOC: HWRAD 14:10 | PROVIDERS: ATTENDING PHYSICIAN Physician Assistant Surgical; FAMILY PHYSICIAN Family Medicine | DX: R91.8 Other nonspecific abnormal finding of lung field (principal) | CPT/HCPCS: 71250 ==

== ENCOUNTER → 2025-04-04 15:24 | Outpatient (REF) | payer OTHER, SELFPAY | LOC: WDC 15:24 | PROVIDERS: ATTENDING PHYSICIAN Family Medicine | DX: Z12.31 Encounter for screening mammogram for malignant neoplasm of breast (principal) | CPT/HCPCS: 77063; 77067 ==